=== PATIENT | male | born 1970 | race Caucasian/White ===

== ENCOUNTER 2018-05-12 15:16 | Observation (INO) | payer OTHER ==
[~2018-05-12] VITALS: Ht 177.8 cm; Wt 114.4 kg
--- NOTE | 2018-05-12 15:18 | ER Report ---
History and Physical Time Seen By MD: 15:18 (QUEENIE MORALES DO) HPI/ROS CHIEF COMPLAINT: Loss of consciousness HISTORY OF PRESENT ILLNESS: Patient is a 47-year-old male here with complaints of headache, loss of consciousness while snowboarding [place] [employer]. Patient reportedly was [place] on the mountain by skip pit worker, hypothermic, altered. Patient does not recall the exact events leading up to his lost consciousness however he does remember standing up on his board immediately prior to waking up with skip pit worker surrounding him. Patient admits to a headache however denies focal neurological findings, blurry vision, double vision, nausea, vomiting, chest pain, shortness breath. EFAST negative. Denies medical problems or taking medications. Patient was given warmed IV fluids by EMS. Patient is neurovascularly intact with no focal neurological findings at this time. REVIEW OF SYSTEMS: Constitutional: No fever, no chills. Eyes: No discharge. ENT: No sore throat. Cardiovascular: No chest pain, no palpitations. Respiratory: No cough, no shortness of breath. Gastrointestinal: No abdominal pain, no vomiting. Genitourinary: No hematuria. Musculoskeletal: No back pain. Skin: No rashes. Neurological: + headache. (QUEENIE MORALES DO) Allergies: Coded Allergies: No Known Drug Allergies (Unverified , 05/12/18) Home Meds No Active Prescriptions or Reported Meds Constitutional Vital Sign - Last 24 Hours 05/12/18 05/12/18 05/12/18 05/12/18 15:20 15:20 15:30 15:48 Temp 98.2 Pulse 108 109 Resp 16 B/P (MAP) 158/108 172/122 (139) 157/98 (117) Pulse Ox 95 96 O2 Delivery Nasal Cannula 05/12/18 05/12/18 05/12/18 05/12/18 15:50 16:00 16:20 16:30 Pulse 104 106 B/P (MAP) 154/107 (123) 162/109 (126) Pulse Ox 90 91 05/12/18 05/12/18 05/12/18 05/12/18 16:50 17:00 17:30 17:48 Pulse 104 103 B/P (MAP) 156/111 (126) 158/100 (119) 146/94 (111) Pulse Ox 94 92 91 05/12/18 05/12/18 05/12/18 05/12/18 17:49 18:00 18:30 18:35 Pulse 106 106 107 Resp 15 6 14 B/P (MAP) 159/95 (116) 142/93 (109) 140/81 (100) Pulse Ox 92 92 89 05/12/18 05/12/18 05/12/18 05/12/18 19:00 19:05 19:30 19:35 Pulse 109 108 Resp 23 13 B/P (MAP) 142/100 (114) 151/97 (115) Pulse Ox 94 95 05/12/18 20:00 B/P (MAP) 152/76 (101) Intake and Output 05/12/18 05/12/18 05/13/18 15:00 23:00 07:00 Intake Total 1000 ml Balance 1000 ml (LYNETTE SALAS DO) Physical Exam General Appearance: The patient is alert, has no immediate need for airway protection and no signs of toxicity. No acute distress, moving all extremities spontaneously Eyes: Pupils equal and round no pallor or injection. ENT, Mouth: Mucous membranes are moist. Respiratory: There are no retractions, lungs are clear to auscultation. Cardiovascular: Regular rate and rhythm. Gastrointestinal: Abdomen is soft and non tender, no masses, bowel sounds normal. Neurological: Moving all extremities, neurovascular exam intact Skin: Warm and dry, no rashes. No obvious signs of trauma to the head Musculoskeletal: Neck is supple non tender. Extremities are nontender, nonswollen and have full range of motion. DIFFERENTIAL DIAGNOSIS: After history and physical exam differential diagnosis was considered for headache including but not limited to subarachnoid hemorrhage, epidural, skull fracture, concussion, seizure, intoxication (QUEENIE MORALES DO) Medical Decision Making Data Points Result Diagram: 05/12/18 1610 05/12/18 1610 Laboratory Hematology Test 05/12/18 15:35 05/12/18 16:10 05/12/18 17:08 05/12/18 19:14 Urine Color Yellow Urine Clarity Clear Urine pH 5.0 pH (4.8-9.5) Urine Specific [place] 1.016 Urine Protein 30 mg/dL (NEGATIVE) Urine Glucose (UA) Negative mg/dL (NEGATIVE) Urine Ketones Trace mg/dL (NEGATIVE) Urine Blood Small (NEGATIVE) Urine Nitrite Negative (NEGATIVE) Urine Bilirubin Negative (NEGATIVE) Urine Urobilinogen Negative mg/dL (0.2-1.9) Urine Leukocyte Esterase Negative (NEGATIVE) Urine RBC <1 /HPF (0-2/HPF) Urine WBC <1 /HPF (0-5/HPF) Urine Squamous Epithelial Cells None /LPF (</=FEW) Urine Bacteria Negative /HPF (NONE-FEW) Urine Mucus None /HPF (NONE-FEW) Urine Opiates Screen Negative Urine Barbiturates Screen Negative Ur Tricyclic Antidepressants Screen Negative Urine Phencyclidine Screen Negative Urine Amphetamines Screen Negative Urine Benzodiazepines Screen Negative Urine Cocaine Screen Negative Urine Cannabinoids Screen Negative Red Blood Count 5.03 M/uL (4.00-5.60) Mean Corpuscular Volume 92.1 fL (80.0-96.0) Mean Corpuscular Hemoglobin 30.9 pg (26.0-33.0) Mean Corpuscular Hemoglobin Concent 33.6 g/dL (32.0-36.0) Red Cell Distribution Width 13.0 % (11.5-14.5) Mean Platelet Volume 8.4 fL (7.2-11.1) Neutrophils (%) (Auto) 85.4 % (39.4-72.5) Lymphocytes (%) (Auto) 9.3 % (17.6-49.6) Monocytes (%) (Auto) 5.0 % (4.1-12.4) Eosinophils (%) (Auto) 0.0 % (0.4-6.7) Basophils (%) (Auto) 0.3 % (0.3-1.4) Nucleated RBC Relative Count (auto) 0.1 /100WBC Neutrophils # (Auto) 13.8 K/uL (2.0-7.4) Lymphocytes # (Auto) 1.5 K/uL (1.3-3.6) Monocytes # (Auto) 0.8 K/uL (0.3-1.0) Eosinophils # (Auto) 0.0 K/uL (0.0-0.5) Basophils # (Auto) 0.1 K/uL (0.0-0.1) Nucleated RBC Absolute Count (auto) 0.01 K/uL Prothrombin Time 12.9 seconds (12.0-14.4) Prothromb Time International Ratio 0.97 Activated Partial Thromboplast Time 25 seconds (23-35) D-Dimer Quantitative (PE/DVT) 1.40 ug/ml (0-0.50) Sodium Level 139 mmol/L (137-145) Potassium Level 3.9 mmol/L (3.5-5.0) Chloride Level 106 mmol/L (98-107) Carbon Dioxide Level 22 mmol/L (22-30) Blood Urea Nitrogen 19 mg/dl (9-21) Creatinine 1.20 mg/dl (0.66-1.25) Glomerular Filtration Rate Calc > 60.0 Random Glucose 99 mg/dl (75-110) Calcium Level 8.8 mg/dl (8.4-10.2) Total Bilirubin 0.5 mg/dl (0.2-1.3) Aspartate Amino Transf (AST/SGOT) 62 U/L (0-35) Alanine Aminotransferase (ALT/SGPT) 103 U/L (0-56) Alkaline Phosphatase 61 U/L (0-126) Total Protein 7.0 g/dl (6.3-8.2) Albumin 4.0 g/dl (3.5-5.0) Lipase 159 U/L (23-300) Serum Alcohol < 10 mg/dl Blood Gas Patient Temperature 98.2 DEGREES Venous Blood pH 7.36 (7.31-7.41) Venous Blood Partial Pressure CO2 38 mmHg Venous Blood Partial Pressure O2 < 35 mmHg Venous Blood HCO3 21 mmol/L Venous Blood Oxygen Saturation 57 % Venous Blood Base Excess -4 mmol/L Oxygen Liters/Minute 1 l Lactate 2.7 mmol/L (0.7-2.1) Troponin I 0.018 ng/ml Chemistry Test 05/12/18 15:35 05/12/18 16:10 05/12/18 17:08 05/12/18 19:14 Urine Color Yellow Urine Clarity Clear Urine pH 5.0 pH (4.8-9.5) Urine Specific [place] 1.016 Urine Protein 30 mg/dL (NEGATIVE) Urine Glucose (UA) Negative mg/dL (NEGATIVE) Urine Ketones Trace mg/dL (NEGATIVE) Urine Blood Small (NEGATIVE) Urine Nitrite Negative (NEGATIVE) Urine Bilirubin Negative (NEGATIVE) Urine Urobilinogen Negative mg/dL (0.2-1.9) Urine Leukocyte Esterase Negative (NEGATIVE) Urine RBC <1 /HPF (0-2/HPF) Urine WBC <1 /HPF (0-5/HPF) Urine Squamous Epithelial Cells None /LPF (</=FEW) Urine Bacteria Negative /HPF (NONE-FEW) Urine Mucus None /HPF (NONE-FEW) Urine Opiates Screen Negative Urine Barbiturates Screen Negative Ur Tricyclic Antidepressants Screen Negative Urine Phencyclidine Screen Negative Urine Amphetamines Screen Negative Urine Benzodiazepines Screen Negative Urine Cocaine Screen Negative Urine Cannabinoids Screen Negative White Blood Count 16.2 k/uL (4.5-11.0) Red Blood Count 5.03 M/uL (4.00-5.60) Hemoglobin 15.6 g/dL (14.0-18.0) Hematocrit 46.3 % (42.0-52.0) Mean Corpuscular Volume 92.1 fL (80.0-96.0) Mean Corpuscular Hemoglobin 30.9 pg (26.0-33.0) Mean Corpuscular Hemoglobin Concent 33.6 g/dL (32.0-36.0) Red Cell Distribution Width 13.0 % (11.5-14.5) Platelet Count 320 K/uL (150-450) Mean Platelet Volume 8.4 fL (7.2-11.1) Neutrophils (%) (Auto) 85.4 % (39.4-72.5) Lymphocytes (%) (Auto) 9.3 % (17.6-49.6) Monocytes (%) (Auto) 5.0 % (4.1-12.4) Eosinophils (%) (Auto) 0.0 % (0.4-6.7) Basophils (%) (Auto) 0.3 % (0.3-1.4) Nucleated RBC Relative Count (auto) 0.1 /100WBC Neutrophils # (Auto) 13.8 K/uL (2.0-7.4) Lymphocytes # (Auto) 1.5 K/uL (1.3-3.6) Monocytes # (Auto) 0.8 K/uL (0.3-1.0) Eosinophils # (Auto) 0.0 K/uL (0.0-0.5) Basophils # (Auto) 0.1 K/uL (0.0-0.1) Nucleated RBC Absolute Count (auto) 0.01 K/uL Prothrombin Time 12.9 seconds (12.0-14.4) Prothromb Time International Ratio 0.97 Activated Partial Thromboplast Time 25 seconds (23-35) D-Dimer Quantitative (PE/DVT) 1.40 ug/ml (0-0.50) Glomerular Filtration Rate Calc > 60.0 Calcium Level 8.8 mg/dl (8.4-10.2) Total Bilirubin 0.5 mg/dl (0.2-1.3) Aspartate Amino Transf (AST/SGOT) 62 U/L (0-35) Alanine Aminotransferase (ALT/SGPT) 103 U/L (0-56) Alkaline Phosphatase 61 U/L (0-126) Total Protein 7.0 g/dl (6.3-8.2) Albumin 4.0 g/dl (3.5-5.0) Lipase 159 U/L (23-300) Serum Alcohol < 10 mg/dl Blood Gas Patient Temperature 98.2 DEGREES Venous Blood pH 7.36 (7.31-7.41) Venous Blood Partial Pressure CO2 38 mmHg Venous Blood Partial Pressure O2 < 35 mmHg Venous Blood HCO3 21 mmol/L Venous Blood Oxygen Saturation 57 % Venous Blood Base Excess -4 mmol/L Oxygen Liters/Minute 1 l Lactate 2.7 mmol/L (0.7-2.1) Troponin I 0.018 ng/ml Coagulation Test 05/12/18 16:10 Prothrombin Time 12.9 seconds Prothromb Time International Ratio 0.97 Activated Partial Thromboplast Time 25 seconds D-Dimer Quantitative (PE/DVT) 1.40 ug/ml Toxicology Test 05/12/18 15:35 05/12/18 16:10 Urine Opiates Screen Negative Urine Barbiturates Screen Negative Ur Tricyclic Antidepressants Screen Negative Urine Phencyclidine Screen Negative Urine Amphetamines Screen Negative Urine Benzodiazepines Screen Negative Urine Cocaine Screen Negative Urine Cannabinoids Screen Negative Serum Alcohol < 10 mg/dl Urinalysis Test 05/12/18 15:35 Urine Color Yellow Urine Clarity Clear Urine pH 5.0 pH (4.8-9.5) Urine Specific [place] 1.016 Urine Protein 30 mg/dL (NEGATIVE) Urine Glucose (UA) Negative mg/dL (NEGATIVE) Urine Ketones Trace mg/dL (NEGATIVE) Urine Blood Small (NEGATIVE) Urine Nitrite Negative (NEGATIVE) Urine Bilirubin Negative (NEGATIVE) Urine Urobilinogen Negative mg/dL (0.2-1.9) Urine Leukocyte Esterase Negative (NEGATIVE) Urine RBC <1 /HPF (0-2/HPF) Urine WBC <1 /HPF (0-5/HPF) Urine Squamous Epithelial Cells None /LPF (</=FEW) Urine Bacteria Negative /HPF (NONE-FEW) Urine Mucus None /HPF (NONE-FEW) (LYNETTE SALAS DO) EKG/Imaging Imaging CT Head without contrast and CT Cervical spine: Indication: Trauma, snowboarding accident. Comparison: 07/09/2006. Technique: CT head: Axial CT images were obtained through the brain from the skull base to the vertex without administration of IV contrast. Reformatted coronal and sagittal images were also obtained. Technique: CT cervical spine: Axial CT imaging of the cervical spine was performed. 2-D sagittal and coronal CT reformats were also obtained. One of the following dose optimization techniques was utilized in the performance of this exam: Automated exposure control; adjustment of the mA and/or kV according to the patient's size; or use of an iterative reconstruction technique. Specific details can be referenced in the facility's radiology CT exam operational policy. FINDINGS: CT head: No intracranial bleed, midline shift, mass effect, extra-axial fluid collection or hydrocephalus. No abnormal density. Galindo/white matter differentiation appears normal. Bony structures show no fractures or lesions. Mild mucosal thickening seen in the left maxillary and right sphenoid sinuses. The remaining sinuses and mastoids visualized are clear. CT cervical spine: The vertebral bodies are aligned. No fracture or facet dislocation. Anterior fu juan of C5 through C7 without sequelae. No bony lesions. No significant degenerative changes. The endplates are maintained. No obvious disc herniations. Prevertebral soft tissues and surrounding soft tissues are unremarkable. Lung apices are clear. IMPRESSION: 1. No acute intracranial abnormality. No skull fracture. 2. No acute osseous or acute alignment abnormality of the cervical spine. Postsu rgical changes without sequelae. 3. Mild sinus disease. Location: [facility] Patient: Carmelo Palafox : 1970 Visit/Account:[id number] Date of Sevice: 05/12/2018 CT CHEST ABDOMEN PELVIS W/CON HISTORY: snowboard accident ADDITIONAL HISTORY: None. TECHNIQUE: Following administration of IV contrast axial images acquired through the chest abdomen and pelvis during the portal venous phase. Coronal and sagittal reformatting was also performed.Dose Lowering Technique One of the following dose optimization techniques was utilized in the performance of this exam: Automated exposure control; adjustment of the mA and/or kV according to the patient's size; or use of an iterative reconstruction technique. Specific details can be referenced in the facility's radiology CT exam operational policy. CONTRAST: 75 mL Isovue-370 COMPARISON: None. FINDINGS: CHEST: Lungs/Pleura: Negative. Mediastinum/lymph nodes: There is haziness of the anterior mediastinal fat Heart/vessels: There is motion artifact at the root of the aorta. On the sagittal images however there is a linear area of decreased attenuation along the anterior aspect of the ascending thoracic aorta. Although this could be related to motion artifact possibility of an aortic injury cannot be excluded. Moderate calcified occasions are seen in the LAD Bones/soft tissues: Incompletely imaged is anterior fusion of the lower cervical spine. There are mild spondylotic changes of the thoracic spine ABDOMEN AND PELVIS: Hepatobiliary: There is diffuse hepatic steatosis Spleen: Accessory splenule Pancreas: Negative. Adrenals: Negative. Kidneys ureters and bladder : Small subcentimeter hypodensities in both kidneys likely represent cysts although are too small to characterize. Genitalia: Prostate gland is mildly enlarged impinging upon the floor the urinary bladder GI: No evidence of bowel wall thickening or bowel obstruction. Vessels/spaces/nodes: There is no evidence of free intra-abdominal or pelvic fluid or free air Bones/soft tissues: There spondylotic changes lumbar spine. Additional findings: None pertinent. IMPRESSION: There is haziness in the anterior mediastinal fat. On the sagittal images there is a linear area of decreased attenuation along the anterior aspect of the ascending thoracic aorta. Although there is motion artifact present although possibility of an aortic injury cannot be totally excluded. A CTA of the chest with attention to the thoracic aorta with gating is recommended for further evaluation Diffuse hepatic steatosis No solid organ injury in the abdomen or pelvis (MORALES,QUEENIE S DO) EKG Interpretation 12 lead EK Rhythm: Sinus tachycardia, rate 106 [place]: normal QRS: normal ST segments: As KRISTOPHER-1 acumen 3, flattening of the T in 3, suspicious for pulmonary embolism Imaging Results: CT scan of the CTA aortogram was obtained. The results of the study are EXAMINATION: CT angiogram of the thoracic aorta without and with IV contrast HISTORY: Snowboard accident. TECHNIQUE: Bolus thin section axial scans were obtained prior to and during maximal arterial opacification through the chest. Reconstruction of the source data set includes multiplanar 2D in the sagittal and coronal planes, and 3D coronal thin slab MIP series. Outsole Molder images have been stored on PACS. One of the following dose optimization techniques was utilized in the performance of this exam: Automated exposure control; adjustment of the mA and/or kV according to the patient's size; or use of an iterative reconstruction technique. Specific details can be referenced in the facility's radiology CT exam operational policy. CONTRAST: 70 mL of IV Isovue-370. COMPARISON: None. FINDINGS: Please note that this exam is optimized for assessment of the thoracic aorta and is not intended as a diagnostic study of the pulmonary arteries, coronary art eries or venous structures. Angiographic findings: Thoracic aorta: The aorta shows no indication of aneurysm or dissection. Other vasculature: Negative. Additional non-angiographic findings: Bony structures show no acute fractures or aggressive bony lesions. Chest wall shows no enlarged axillary lymph nodes or masses. Upper abdomen is unremarkable. The heart is normal size without pericardial effusion. The pulmonary arteries are grossly normal. The mediastinum and hilar regions show no enlarged lymph nodes. No discrete abnormal density seen mediastinum. The mediastinum shows a improved appearance from the previous exam which could be due to abnormal motion artifact on this exam. The lungs show no consolidation, pleural effusion or pneumothorax. No discrete nodule or focal interstitial opacities. Airways are clear. IMPRESSION: 1. The aorta shows no aneurysm or dissection. The mediastinum shows an improved appearance without significant abnormality. The study was read by the radiologist. I viewed the images myself on the PACS system. X-ray: Bilateral lower extremity Doppler venograms was obtained. I viewed the images myself on the PACS system. My interpretation of the images is: EXAMINATION: Bilateral LOWER EXTREMITY VENOUS DOPPLER ULTRASOUND DATE: 05/12/2018 9:00 PM REASON FOR STUDY: Syncope. Clinical suspicion for DVT. TECHNIQUE: Grayscale, color Doppler, and spectral Doppler ultrasound was performed of the lower extremity veins to evaluate for deep venous thrombosis. COMPARISON: None FINDINGS: The bilateral common femoral, femoral, and popliteal veins are compressible with normal flow on color Doppler imaging. There is also normal Doppler flow of the profunda femoris and greater saphenous veins at the confluence with the common femoral vein. The bilateral posterior tibial and peroneal veins demonstrate normal flow IMPRESSION: No evidence of deep venous thrombosis in the bilateral lower extremity veins. .The radiologist interpretation had no clinically significant variation from this interpretation. (LYNETTE SALAS DO) ED Course/Re-evaluation ED Course Patient is a 47-year-old male previously healthy individual found down while snowboarding with no recollection of the events leading to his loss of consciousness. Patient reports that he just stood up on his snowboard then woke up with skip patrol surrounding him. Only complaint at this time is a headache located behind his eyes however there is no obvious sign of trauma to the head. Patient denies further pain at this time. Patient is alert and oriented at this time previously having received IV fluid boluses of warmed normal saline.EFAST negative. Patient was transported to CT scanner for trauma scans shortly after arrival. CT head and C-spine showed no acute fractures or intracranial bleeding. 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 Hill. CT angiogram of the chest with a dissection timing was completed to rule out aortic injury. Patient was noted to have a white count of 16,000, lactate of 2.7. Patient reports that he did have a recent influenza illness which was diagnosed last Saturday and he reports that he had recovered by Saturday. Denies fevers, chills, shortness breath, myalgias, arthralgias today. He does have a history of cervical spine fusion in the past, periumbilical hernia repair, tonsillectomy but denies taking medications aside from an occasional Excedrin and [id number] vitamins.Upper extremity blood pressures were found to be equal. Patient was signed out to Dr. Salas pending CT imaging results. (QUEENIE MORALES DO) ED Course Care was assumed at shift change with diagnostic CT a of the aorta pending to rule out aortic injury or abnormality. Patient had spontaneous syncope while under exertion skiing down a mountain slow. He was found unresponsive and hypothermic by EMS. Unclear how long he was down. His diagnostic studies have been extensive and are unremarkable except for an elevated lactate and white blood cell count with left shift. His d-dimer was elevated. A CTA was performed, but the focus was on the aorta. We have not inclusively ruled out pulmonary embolism. An EKG shows S1, every 3, T3 suspicious for pulmonary stra in pattern consistent with pulmonary embolism. Serial troponins were unremarkable. Patient's treated with Lovenox 110 mg subcutaneous. Case is discussed with hospitalist on-call, who accepts patient for admission for observation of his syncope for monitoring for dysrhythmia as well as monitoring until morning when a CTA can be performed with IV contrast to rule out pulmonary embolism. 05/12/2018 7:57:43 pm case discussed with Dr. Marie hospitalist on-call, who accepts the patient for admission for observation for syncope and rule out pulmonary embolism Decision to Disposition Date: May 12, 2018 Decision to Disposition Time: 19:57 (LYNETTE SALAS DO) Depart Departure Latest Vital Signs Vital Signs Date Time Temp Pulse Resp B/P (MAP) Pulse Ox O2 Delivery O2 Flow Rate FiO2 05/12/18 20:00 152/76 (101) 05/12/18 19:35 108 13 95 05/12/18 15:20 98.2 Nasal Cannula (LYNETTE SALAS DO) Impression: Primary Impression: Syncope Additional Impressions: Abnormal EKG Leukocytosis Lactic acidosis Condition: Improved Disposition: Admitted from ER New Scripts No Active Prescriptions or Reported Meds Problem Qualifiers Primary Impression: Syncope Syncope type: unspecified Qualified Codes: R55 - Syncope and collapse Additional Impressions: Leukocytosis Leukocytosis type: unspecified Qualified Codes: D72.829 - Elevated white blood cell count, unspecified QUEENIE MORALES DO May 12, 2018 15:18 LYNETTE SALAS DO May 12, 2018 19:58
[2018-05-12] MEDS ORDERED: NS(*) 0.9% 1000 ML BAG 1,000 ML IV ONE (15:28)
[2018-05-12] MEDS ORDERED: IOPAMIDOL 76% 100 ML INFUS BTL 100 ML ONE ×2 (15:42→17:42)
[2018-05-12 16:30] LABS: PLATELET COUNT, AUTOMATED 320 K/uL (150-450)
--- NOTE | 2018-05-12 16:45 | RADIOLOGY IMAGING REPORT ---
FACILITY: [facility] PATIENT NAME: Carmelo Palafox : 1970 MR: [id number] V: [id number] EXAM DATE: ORDERING PHYSICIAN: QUEENIE MORALES TECHNOLOGIST: Location: [facility] Patient: Carmelo Palafox : 1970 Visit/Account:[id number] Date of Sevice: 05/12/2018 CT Head without contrast and CT Cervical spine: Indication: Trauma, snowboarding accident. Comparison: 07/09/2006. Technique: CT head: Axial CT images were obtained through the brain from the skull base to the verte x without administration of IV contrast. Reformatted coronal and sagittal images were also obtained. Technique: CT cervical spine: Axial CT imaging of the cervical spine was performed. 2-D sagittal and coronal CT reformats were also obtained. One of the following dose optimization techniques was utilized in the performance of this exam: Autom ated exposure control; adjustment of the mA and/or kV according to the patient's size; or use of an i terative reconstruction technique. Specific details can be referenced in the facility's radiology C T exam operational policy. FINDINGS: CT head: No intracranial bleed, midline shift, mass effect, extra-axial fluid collection or hydrocephalus. No abnormal density. Galindo/white matter differentiation appears normal. Bony structures show no fractures or lesions. Mild mucosal thickening seen in the left maxillary and right sphenoid sinuses. The remai cristiano sinuses and mastoids visualized are clear. CT cervical spine: The vertebral bodies are aligned. No fracture or facet dislocation. Anterior fusion of C5 through C7 without sequelae. No bony lesions. No significant degenerative changes. The endplates are maintained. No obvious disc herniations. Prevertebral soft tissues and surrounding soft tissues are unremarkable . Lung apices are clear. IMPRESSION: 1. No acute intracranial abnormality. No skull fracture. 2. No acute osseous or acute alignment abnormality of the cervical spine. Postsurgical changes withou t sequelae. 3. Mild sinus disease. Report Dictated By: Fredy Lobo at 05/12/2018 4:31 PM Report E-Signed By: Fredy Lobo at 05/12/2018 4:40 PM WSN:[id number]
--- NOTE | 2018-05-12 16:45 | RADIOLOGY IMAGING REPORT ---
FACILITY: [facility] [place] PATIENT NAME: Carmelo Palafox : 1970 MR: [id number] V: [id number] EXAM DATE: ORDERING PHYSICIAN: QUEENIE MORALES TECHNOLOGIST: [place] [facility] [place] Carmelo Palafox : 1970 Visit/Account:[id number] Date of Sevice: 05/12/2018 CT Head without contrast and CT Cervical spine: Indication: Trauma, snowboarding accident. Comparison: 07/09/2006. Technique: CT head: Axial CT images were obtained through the brain from the skull base to the verte x without administration of IV contrast. Reformatted coronal and sagittal images were also obtained. Technique: CT cervical spine: Axial CT imaging of the cervical spine was performed. 2-D sagittal and coronal CT reformats were also obtained. One of the following dose optimization techniques was utilized in the performance of this exam: Autom ated exposure control; adjustment of the mA and/or kV according to the patient's size; or use of an i terative reconstruction technique. Specific details can be referenced in the facility's radiology C T exam operational policy. FINDINGS: CT head: No intracranial bleed, midline shift, mass effect, extra-axial fluid collection or hydrocephalus. No abnormal density. Galindo/white matter differentiation appears normal. Bony structures show no fractures or lesions. Mild mucosal thickening seen in the left maxillary and right sphenoid sinuses. The remai cristiano sinuses and mastoids visualized are clear. CT cervical spine: The vertebral bodies are aligned. No fracture or facet dislocation. Anterior fusion of C5 through C7 without sequelae. No bony lesions. No significant degenerative changes. The endplates are maintained. No obvious disc herniations. Prevertebral soft tissues and surrounding soft tissues are unremarkable . Lung apices are clear. IMPRESSION: 1. No acute intracranial abnormality. No skull fracture. 2. No acute osseous or acute alignment abnormality of the cervical spine. Postsurgical changes withou t sequelae. 3. Mild sinus disease. Report Dictated By: Fredy Lobo at 05/12/2018 4:31 PM Report E-Signed By: Fredy Lobo at 05/12/2018 4:40 PM WSN:[id number]
--- NOTE | 2018-05-12 17:28 | RADIOLOGY IMAGING REPORT ---
FACILITY: [facility] PATIENT NAME: Carmelo Palafox : 1970 MR: [id number] V: [id number] EXAM DATE: ORDERING PHYSICIAN: QUEENIE MORALES TECHNOLOGIST: Location: [facility] Patient: Carmelo Palafox : 1970 Visit/Account:[id number] Date of Sevice: 05/12/2018 CT CHEST ABDOMEN PELVIS W/CON HISTORY: snowboard accident ADDITIONAL HISTORY: None. TECHNIQUE: Following administration of IV contrast axial images acquired through the chest abdomen a nd pelvis during the portal venous phase. Coronal and sagittal reformatting was also performed.Dose Lowering Technique One of the following dose optimization techniques was utilized in the performance of this exam: Autom ated exposure control; adjustment of the mA and/or kV according to the patient's size; or use of an i terative reconstruction technique. Specific details can be referenced in the facility's radiology C T exam operational policy. CONTRAST: 75 mL Isovue-370 COMPARISON: None. FINDINGS: CHEST: Lungs/Pleura: Negative. Mediastinum/lymph nodes: There is haziness of the anterior mediastinal fat Heart/vessels: There is motion artifact at the root of the aorta. On the sagittal images however th ere is a linear area of decreased attenuation along the anterior aspect of the ascending thoracic aor ta. Although this could be related to motion artifact possibility of an aortic injury cannot be excl uded. Moderate calcified occasions are seen in the LAD Bones/soft tissues: Incompletely imaged is anterior fusion of the lower cervical spine. There are m ild spondylotic changes of the thoracic spine ABDOMEN AND PELVIS: Hepatobiliary: There is diffuse hepatic steatosis Spleen: Accessory splenule Pancreas: Negative. Adrenals: Negative. Kidneys ureters and bladder : Small subcentimeter hypodensities in both kidneys likely represent cyst s although are too small to characterize. Genitalia: Prostate gland is mildly enlarged impinging upon the floor the urinary bladder GI: No evidence of bowel wall thickening or bowel obstruction. Vessels/spaces/nodes: There is no evidence of free intra-abdominal or pelvic fluid or free air Bones/soft tissues: There spondylotic changes lumbar spine. Additional findings: None pertinent. IMPRESSION: There is haziness in the anterior mediastinal fat. On the sagittal images there is a linear area of decreased attenuation along the anterior aspect of the ascending thoracic aorta. Although there is m otion artifact present although possibility of an aortic injury cannot be totally excluded. A CTA of the chest with attention to the thoracic aorta with gating is recommended for further evaluation Diffuse hepatic steatosis No solid organ injury in the abdomen or pelvis Results were called to QUEENIE MORALES's nurse at 05/12/2018 5:20 PM. Report Dictated By: Radha Henderson MD at 05/12/2018 4:12 PM Report E-Signed By: Radha Henderson MD at 05/12/2018 5:24 PM WSN:[email or web address]
[2018-05-12] MEDS ORDERED: NS(*) 0.9% 50 ML BAG 50 ML ONE (17:42)
--- NOTE | 2018-05-12 18:31 | RADIOLOGY IMAGING REPORT ---
FACILITY: [facility] PATIENT NAME: Carmelo Palafox : 1970 MR: [id number] V: [id number] EXAM DATE: ORDERING PHYSICIAN: QUEENIE MORALES TECHNOLOGIST: Location: [facility] Patient: Carmelo Palafox : 1970 Visit/Account:[id number] Date of Sevice: 05/12/2018 EXAMINATION: CT angiogram of the thoracic aorta without and with IV contrast HISTORY: Snowboard accident. TECHNIQUE: Bolus thin section axial scans were obtained prior to and during maximal arterial opacif ication through the chest. Reconstruction of the source data set includes multiplanar 2D in the sagit lyudmila and coronal planes, and 3D coronal thin slab MIP series. Special Events Coordinator images have been stored o n PACS. One of the following dose optimization techniques was utilized in the performance of this exam: Autom ated exposure control; adjustment of the mA and/or kV according to the patient's size; or use of an i terative reconstruction technique. Specific details can be referenced in the facility's radiology C T exam operational policy. CONTRAST: 70 mL of IV Isovue-370. COMPARISON: None. FINDINGS: Please note that this exam is optimized for assessment of the thoracic aorta and is not intended as a diagnostic study of the pulmonary arteries, coronary arteries or venous structures. Angiographic findings: Thoracic aorta: The aorta shows no indication of aneurysm or dissection. Other vasculature: Negative. Additional non-angiographic findings: Bony structures show no acute fractures or aggressive bony lesions. Chest wall shows no enlarged axil esthela lymph nodes or masses. Upper abdomen is unremarkable. The heart is normal size without pericardi al effusion. The pulmonary arteries are grossly normal. The mediastinum and hilar regions show no enl arged lymph nodes. No discrete abnormal density seen mediastinum. The mediastinum shows a improved ap pearance from the previous exam which could be due to abnormal motion artifact on this exam. The lung s show no consolidation, pleural effusion or pneumothorax. No discrete nodule or focal interstitial o pacities. Airways are clear. IMPRESSION: 1. The aorta shows no aneurysm or dissection. The mediastinum shows an improved appearance without si gnificant abnormality. Report Dictated By: Fredy Lobo at 05/12/2018 6:16 PM Report E-Signed By: Fredy Lobo at 05/12/2018 6:27 PM WSN:[id number]
--- NOTE | 2018-05-12 19:50 | EKG ---
FACILITY: [facility] PATIENT NAME: DARLYN PHILIP : [id number] MR: [id number] V: [id number] EXAM DATE: ORDERING PHYSICIAN: LYNETTE DAVIS TECHNOLOGIST: LIDIA Test Reason : SYNCOPE Blood Pressure : / mmHG Vent. Rate : 106 BPM Atrial Rate : 106 BPM P-R Int : 140 ms QRS Dur : 086 ms QT Int : 354 ms P-R-T Axes : 043 026 042 degrees QTc Int : 470 ms Sinus tachycardia with fusion complexes Otherwise normal ECG No previous ECGs available Confirmed by FIDELINA HASSAN ([id number]) on 05/12/2018 9:02:33 PM Referred By: Confirmed By:FIDELINA HASSAN
[2018-05-12] MEDS ORDERED: ENOXAPARIN 100 MG/ML SYR SC ONE (19:55)
[2018-05-12] MEDS ORDERED: ENOXAPARIN 30 MG/0.3 ML SYR SC ONE (20:05)
[2018-05-12 20:24] LABS: INR 0.97
--- NOTE | 2018-05-12 21:09 | RADIOLOGY IMAGING REPORT ---
FACILITY: [facility] [place] PATIENT NAME: Carmelo Palafox : 1970 MR: [id number] V: [id number] EXAM DATE: ORDERING PHYSICIAN: LYNETTE DAVIS TECHNOLOGIST: Location: [facility] [place] Patient: Carmelo Palafox : 1970 Visit/Account:[id number] Date of Sevice: 05/12/2018 EXAMINATION: Bilateral LOWER EXTREMITY VENOUS DOPPLER ULTRASOUND DATE: 05/12/2018 9:00 PM REASON FOR STUDY: Syncope. Clinical suspicion for DVT. TECHNIQUE: Grayscale, color Doppler, and spectral Doppler ultrasound was performed of the lower extre mity veins to evaluate for deep venous thrombosis. COMPARISON: None FINDINGS: The bilateral common femoral, femoral, and popliteal veins are compressible with normal flow on color Doppler imaging. There is also normal Doppler flow of the profunda femoris and greater saphenous vei ns at the confluence with the common femoral vein. The bilateral posterior tibial and peroneal veins demonstrate normal flow IMPRESSION: No evidence of deep venous thrombosis in the bilateral lower extremity veins. Report Dictated By: Jeffry Ly MD at 05/12/2018 9:00 PM Report E-Signed By: Jeffry Ly MD at 05/12/2018 9:04 PM WSN:[email or web address]
[2018-05-12] MEDS ORDERED: INFLUENZA VIRUS VAC 0.5ML SYR IM ONLY ONE (21:20)
[2018-05-12 21:27] VITALS: BP 147/80
--- NOTE | 2018-05-12 21:33 | History & Physical ---
History of Present Illness Chief Complaint Syncope History of Present Illness This patient presented to the emergency department after suffering a syncopal episode. He was out snow boarding and finished his run when the event occurred. He does not recall any trauma and has no recollection of what happened. He does not recall anything until first responders arrived. He felt normal upon awakening. The only report from the field is that he was hypothermic. History Problems: (1) No pertinent past medical history Home Meds No Active Prescriptions or Reported Meds Allergies: Coded Allergies: No Known Drug Allergies (Unverified , 05/12/18) Hx Smoking: No Smoking Status: Never Smoker Caffeine Intake: Coffee Caffeine/Cups Per Day: 6 cups-20 cups Hx Alcohol Use: No Hx Substance Use Disorder: No Review of Systems All Systems Reviewed/Normal: Yes, Except as Noted Neurological: Syncope Exam Vital Signs Vital Signs Date Time Temp Pulse Resp B/P (MAP) Pulse Ox O2 Delivery O2 Flow Rate FiO2 05/12/18 20:40 99 92 05/12/18 20:30 143/87 (105) 05/12/18 20:25 8 05/12/18 15:20 98.2 Nasal Cannula Neuro: No Gross deficits Cardiovascular: Regular Rate and Rhythm Respiratory: Clear to Auscultation GI: Abd Soft and Non-Tender Extremities: No Edema Integumentary: No Cyanosis Medical Decision Making Data Points Result Diagram: 05/12/18 1610 05/12/18 1610 EKG / Imaging EKG Interpretation EKG reviewed. Imaging CT scan of chest reviewed. Assessment and Plan Problems: (1) Syncope Status: Acute Assessment & Plan: He did present after a syncopal event of unclear etiology. A trauma evaluation was negative. The only clinical findings are tachycardia, lactic acidosis, an S1Q3 pattern on EKG, and an elevated WBC. He was considered for PE, but he already had two doses of contrast this evening. A venous ultrasound of the lower extremities was negative. We have elected to cover him with Lovenox until we can definitively rule out a PE. (2) Lactic acidosis Status: Acute Assessment & Plan: A repeat level is ordered for the morning. He will be placed on IV fluids overnight. Venous Thromboembolism Antithrombotics Is Pt On Any Antithrombotics?: No Exam Sepsis Risk: No Definite Risk Problem Qualifiers (1) Syncope: Syncope type: unspecified Qualified Codes: R55 - Syncope and collapse FIDELINA HASSAN DO May 12, 2018 21:33
[2018-05-12] MEDS: NS(*) 0.9% 1000 ML BAG 1,000 ML IV PRN (21:39)
[2018-05-13] VITALS (7 sets, daily range): BP systolic 143–172; BP diastolic 89–114; Ht 177.8 cm; Wt 114.4 kg
[2018-05-13] MEDS: NS(*) 0.9% 1000 ML BAG 1,000 ML IV PRN (05:12)
[2018-05-13 06:29] LABS: PLATELET COUNT, AUTOMATED 269 K/uL (150-450)
[2018-05-13] MEDS ORDERED: ENOXAPARIN 100 MG/ML SYR SC SCH ×2 (08:00)
[2018-05-13] MEDS ORDERED: ENOXAPARIN 30 MG/0.3 ML SYR SC SCH (08:00)
--- NOTE | 2018-05-13 09:43 | Hospitalist Progress Note ---
Subjective Progress Notes Subjective He was admitted after syncopal episode. He denies any complaints this morning. He had no acute events overnight. Patient Complains of: Neurological: No: Dizziness Cardiovascular: No: Chest Pain Respiratory: No: Shortness of Breath Physical Exam Vital Signs Date Time Temp Pulse Resp B/P (MAP) Pulse Ox O2 Delivery O2 Flow Rate FiO2 05/13/18 07:42 95 05/13/18 07:42 Room Air 05/13/18 07:03 98.7 90 12 143/91 (108) 05/12/18 22:30 0.5 Intake and Output 05/13/18 07:00 Intake Total 1600 ml Balance 1600 ml Intake Oral 600 ml IV Total 1000 ml # Voids 3 General Appearance: Alert, Awake, No Acute Distress, Afebrile Neuro: No Gross deficits Cardiovascular: Regular Rate and Rhythm Respiratory: No Respiratory Distress, Clear to Auscultation Extremities: Warm, Perfused; No Edema Psych: Alert & Oriented X3, Appropriate Mood & Affect Result Diagram: 05/13/1860805/13/18608 Assessment and Plan Problems: (1) Syncope Status: Acute Assessment & Plan: He did present after a syncopal event of unclear etiology. A trauma evaluation was negative. The only clinical findings upon admission was tachycardia, lactic acidosis, an S1Q3 pattern on EKG, and an elevated WBC. He was considered for PE, but he already had two doses of contrast this evening. A venous ultrasound of the lower extremities was negative. We have elected to cover him with Lovenox until we can definitively rule out a PE. Hid WBC count has decreased this morning, lactate wnl. We will order EEG to rule out seizure, VQ scan for PE, and Echo to look at cardiac causes. (2) Lactic acidosis Status: Acute Assessment & Plan: Improved overnight with hydration. Exam Sepsis Risk: No Definite Risk Problem Qualifiers (1) Syncope: Syncope type: unspecified Qualified Codes: R55 - Syncope and collapse VENU BUTLER [facility] May 13, 2018 09:43
[2018-05-13] MEDS ORDERED: SALINE 0.65% NAS SPR 44 ML BTL PRN (18:05)
[2018-05-13] MEDS: ENOXAPARIN SC SCH (20:31)
[2018-05-14 00:12] VITALS: BP 179/121
[2018-05-14 07:24] VITALS: BP 165/121
[2018-05-14] MEDS ORDERED: LOSARTAN POTASSIUM 50 MG TAB PO SCH (09:00)
[2018-05-14] MEDS: ENOXAPARIN SC SCH (09:09)
[2018-05-14] MEDS ORDERED: NS(*) 0.9% 50 ML BAG 50 ML ONE (11:22)
[2018-05-14] MEDS ORDERED: IOPAMIDOL 76% 100 ML INFUS BTL 100 ML ONE (11:22)
[2018-05-14] MEDS ORDERED: NS(*) 0.9% 1000 ML BAG 1,000 ML IV ONE (11:25)
--- NOTE | 2018-05-14 11:58 | NUR ---
Giving 1 L bolus via previous bag already in the room. Once empty I will grab a new bag
--- NOTE | 2018-05-14 13:35 | RADIOLOGY IMAGING REPORT ---
FACILITY: [facility] PATIENT NAME: Carmelo Palafox : 1970 MR: [id number] V: [id number] EXAM DATE: ORDERING PHYSICIAN: VENU BUTLER TECHNOLOGIST: [place] [facility] [place]: Carmelo Palafox : 1970 Visit/Account:[id number] Date of Sevice: 05/14/2018 CT CTA CHEST W & W/O CON HISTORY: syncope, elevated D-Dimer ADDITIONAL HISTORY: None. TECHNIQUE: CTA chest with intravenous contrast. Axial imaging acquired following administration of IV contrast timed for maximum opacification of the pulmonary arterial vasculature. Slab 3-D MIP roni nstructed images were also created for further evaluation and interpretation. Reconstruction of the [facility] data set includes multiplanar 2-D in the sagittal and coronal planes and 3-D reconstructed [place] nal slab MIP series. 3-D images were created by the technologist.Dose Lowering Technique One of the following dose optimization techniques was utilized in the performance of this exam: Autom ated exposure control; adjustment of the mA and/or kV according to the patient's size; or use of an i terative reconstruction technique. Specific details can be referenced in the facility's radiology C T exam operational policy. CONTRAST: 75 mL Isovue-370 COMPARISON: CTA chest May 12, 2018 FINDINGS: Lungs/pleura: Negative. Heart/vessels: There are moderate calcifications in the LAD. There are no filling defects seen in t he pulmonary arteries worrisome for a pulmonary embolus. Mediastinum/lymph nodes: Negative. Visualized upper abdomen: Negative. Bones/soft tissues: Incompletely imaged are postsurgical changes from anterior fusion of the lower c ervical spine. There are spondylotic changes in the thoracic spine. Additional findings: None IMPRESSION: No evidence of pulmonary emboli or pulmonary consolidation Moderate calcifications are identified in the LAD Report Dictated By: Radha Henderson MD at 05/14/2018 1:21 PM Report E-Signed By: Radha Henderson MD at 05/14/2018 1:30 PM WSN:[email or web address]
[2018-05-14] MEDS ORDERED: LOSA50TA80 PO (13:57)
--- NOTE | 2018-05-14 14:04 | Hospitalist Depart ---
Discharge Summary Reason for Hosp/Final Diag: (1) Syncope Status: Acute Hospital Course & Plan: He did present after a syncopal event of unclear etiology. A trauma evaluation was negative. The only clinical findings upon admission was tachycardia, lactic acidosis, an S1Q3 pattern on EKG, and an elevated WBC. He was considered for PE, but had two contrast CT exams in the emergency department. A venous ultrasound of the lower extremities was negative. He was covered with Lovenox until we could definitively rule out a PE. His WBC count decreased, lactate wnl after hydration. EEG was performed to rule out seizure and was negative. He did have CTA pulmonary angiogram was negative for PE. Echo was essentially normal with EF 60-65%, no intra atrial shunt noted. He was noted to have trace mitral and tricuspid regurg. He was recommended to have follow up with PCP or Cardiology to have Holter monitor placed. (2) Lactic acidosis Status: Acute Hospital Course & Plan: Improved with hydration. (3) Hypertension Status: Chronic Hospital Course & Plan: He was noted to have elevated blood pressures throughout admission. He has been started on Losartan 50mg daily. He will establish care to follow up for hypertension. Departure Latest Vital Signs Vital Signs 05/12/18 05/13/18 05/14/18 05/14/18 05/14/18 22:30 18:46 07:24 08:01 08:05 Temp 98.2 Pulse 90 Resp 18 B/P (MAP) 165/121 (136) Pulse Ox 92 O2 Delivery Room Air O2 Flow Rate 0.5 Weight (Pounds): 252 Weight (Ounces): 5.0 Result Diagram: 05/13/18 0609 05/14/18 1112 Condition: Improved Discharge: Home, Self Care Discharge Instructions Home Meds Active Scripts Losartan Potassium (LOSARTAN POTASSIUM) 50 Mg Tablet, 50 MG PO QDAY, #30 TAB Prov:VENU BUTLER BIOINFORMATICIST 05/14/18 Diet: Regular Activity: As Tolerated Special Instructions: Follow up with Primary Care Provider within 1-2 weeks. Start Losartan 50mg once daily for high blood pressure. Venous Thromboembolism Antithrombotics Is Pt On Any Antithrombotics?: No Problem Qualifiers (1) Syncope: Syncope type: unspecified Qualified Codes: R55 - Syncope and collapse (2) Hypertension: Hypertension type: essential hypertension Qualified Codes: I10 - Essential (primary) hypertension VENU BUTLER BIOINFORMATICIST May 14, 2018 14:04
== END 2018-05-14 13:57 | disposition home or self-care (01) ==
LOC: ER 15:26 → MED 20:04 → INTOOBSV 20:04 → UNDOADMOB 20:04
PROVIDERS: ADMIT Family Medicine; ATTEND Family Medicine
DX: E87.2 Acidosis (principal); D72.829 Elevated white blood cell count, unspecified; I10 Essential (primary) hypertension; Y93.23 Activity, snow (alpine) (downhill) skiing, snowboarding, sledding, tobogganing and snow tubing; Y92.39 Other specified sports and athletic area as the place of occurrence of the external cause; Y99.8 Other external cause status
CPT/HCPCS: 36415; 70450; 71260; 71275; 72125; 74177; 80305; 80320; 81001; 82803; 83605; 83690; 84484; 85025; 85379; 85610; 85730; 93005; 93306; 93970; 95819; 96360; 96372; 99284; G0378; J1650; J7030; J7050; Q9967; 82040; 82247; 82310; 82374; 82435; 82565; 82947; 84075; 84132; 84155; 84295; 84450; 84460; 84520

== ENCOUNTER → 2018-05-12 | Outpatient (CLI) | payer OTHER ==
[~2018-05-12] MED LIST: LOSA50TA80 PO
[2018-05-13 16:23] VITALS: BMI 36.1
== END ==
LOC: AMB 14:04
PROVIDERS: ATTEND Nurse Practitioner
DX: R51 Headache (principal); T68.XXXA Hypothermia, initial encounter; R41.0 Disorientation, unspecified; M79.602 Pain in left arm
CPT/HCPCS: A0425; A0427